=== PATIENT | male | born 1955 | race Caucasian/White ===

== ENCOUNTER → 2016-10-13 | Outpatient (CLI) | payer OTHER, MEDICARE ==
[~2016-10-13] VITALS: Ht 180.3 cm; Wt 123.8 kg
[~2016-10-13] MED LIST: BYSTOLIC10 MG PO; CO Q-10100 MG PO; COQ-10100 MG PO; COZAAR 50 MG TA50 MG PO; COZAAR100 MG PO; CRESTOR20 MG PO; ENDOCET 10-3251 EACH PO; ENDOCET 5-3251 EACH PO; EYE DROPS15 M1; FISH OIL 1,001000 MG PO; HYDROCHLOROTHIA50 MG PO; NAPROSYN500 MG PO; NEURONTIN 300300 M1 PO; NUCYNTA ER100 MG PO; NUCYNTA100 MG PO; NUCYNTA50 MG PO; PERCOCET 10-321 EACH; PERCOCET 10-321 EACH PO; PERCOCET PO; TIZANIDINE HCL 22 M1 PO; TIZANIDINE HCL2 M1 PO; TRICOR; XALATAN2.5 ML OP; XALATAN2.5 ML OPHTHALMIC; ZANAFLEX2 M1 PO
--- NOTE | ~2016-10-13 | HPC ---
[facility] [place] [address] PAIN MANAGEMENT CONSULTATION Name: TY RAHMAN Room #: REG Denise Ordaz#: [id number] Admission: 10/13/16 Attend Phys: Josue Esqueda DO Discharge: Date of : 59 Report #: [id number] THIS REPORT FOR: //name// CC: Barry Esqueda HISTORY: The patient is a very pleasant 61-year-old gentleman, well known to pain clinic, being treated for chronic pain syndrome, status post both cervical and lumbar decompressive laminectomies. He had been stable on Nucynta 100 mg b.i.d. for quite some time, but this became onorously expensive. We rotated to Percocet 10/325 one tablet 2-3 times a day, limit 75 tablets for 30 days. Continued Naprosyn 5 mg b.i.d. Last visit, we did perform a cervical epidural injection, which has afforded some 60% to 70% overall relief of the cervical radicular component of pain. The patient notes that he takes his Percocet at 05:00 a.m. and by 02:00 p.m., he is having breakthrough pain, but he is loathe to take the second one while still at work as it does cause some sedation and has chronic pain that is a 5 on a 0-10 visual analog scale, primarily low back and cervical radicular, with the low back pain radiating into his legs. Pain is typically exacerbated with standing, walking or sitting. PHYSICAL EXAMINATION: GENERAL: Shows a 61-year-old gentleman, BMI is 38.1 kilograms per meter squared. VITAL SIGNS: Blood pressure shows modest hypertension, 153/87; pulse 94 and respirations 16. EXTREMITIES: Upper and lower extremity strength is examined, slightly decreased right triceps strength. Gait is tandem. NEUROLOGIC: Cervical range of motion is modestly limited. NEUROLOGIC: Cranial 2-12 are grossly intact. We reviewed the fact that opiate medications are being used to provide analgesia adequate to support activities of daily living, not attempting to achieve a specific pain score on the 0-10 Visual Analog Scale. The current opiate medications are providing sufficient analgesia to allow the patient to participate in activities of daily living. The patient is not exhibiting any aberrant behavior suggestive of drug diversion. The patient is not having any adverse reactions to medications. The patient is not suffering from daytime somnolence or mental acuity changes. The patient is managing opiate-induced constipation with appropriate zgqr-fhp-hpzigpp agents and dietary considerations. The patient was counseled on concern for caution with operating a motor vehicle while using opiate medications. A physical exam was performed and the patient's functional status was evaluated. All patients with back pain were advised against the bed rest greater than 4 days and were advised to return to normal activities. Pain score assessment was [address] [address] PAIN MANAGEMENT CONSULTATION Name: TY RAHMAN EDUARDO Room #: REG [facility] Sushma#: [id number] Admission: 10/13/16 Attend Phys: Josue Esqueda DO Discharge: Date of : 59 Report #: [id number] noted and the treatment plan was reviewed with the patient. All current medications, both prescribed and OTC were reviewed and reconciled on the electronic medical record. Tobacco screening was accomplished and smoking cessation was advised when indicated. BMI was noted and diet/exercise modification was recommended for all patients following outside normal parameters. I reviewed with the patient today their responsibilities to safeguard prescription medications, reviewed their responsibility to utilize medications only as prescribed by the physician. They are to seek and receive pain medications only from 1 physician group ( [facility]). They are to use 1 pharmacy and keep the clinic informed if they change pharmacies. Their responsibilities include making followup visits in a timely fashion and to avoid abrupt discontinuation of medication usage. Their responsibilities further include bringing their medications (bottles from the pharmacy with residual pills) to the visit for possible confirmation of pill counts and the patient understands it is their responsibility to submit to random drug screens to ensure both that the medications prescribed are present, and that no other controlled substances are present. All prescriptions provided today were generated electronically. ASSESSMENT: Symptomatic chronic pain syndrome; axial back pain, status post both cervical and lumbar decompressive laminectomies, requiring complex medication management. Last urine drug screen, 03/03/2016, positive for prescribed medications. RECOMMENDATIONS: After a long discussion with the patient today, we have elected to try rotating back to Nucynta 100 mg extended release b.i.d. He is now on Medicare and thinks he may have better insurance coverage. If, however, for some reason this medication remains incredibly expensive, I will be happy to leave a prescription for Percocet 10/325 one tablet 2-3 times a day, limit 75 tablets for 30 days to be exchanged for his 3 Nucynta ER 100 mg b.i.d. prescriptions. <ELECTRONICALLY SIGNED> By: Josue Esqueda DO 10/15/16 0932 1226 0022 Josue Esqueda DO /nt
[2016-10-13 10:01] VITALS: BP 153/87
== END | disposition home or self-care (01) ==
LOC: PAIN 07:24
DX: G89.4 Chronic pain syndrome (principal); M54.9 Dorsalgia, unspecified; F11.20 Opioid dependence, uncomplicated; Z98.890 Other specified postprocedural states

== ENCOUNTER → 2017-01-15 | Outpatient (CLI) | payer OTHER, MEDICARE ==
[~2017-01-15] VITALS: Ht 180.3 cm; Wt 122.9 kg
--- NOTE | ~2017-01-15 | HPC ---
[facility] [place] [address] PAIN MANAGEMENT CONSULTATION Name: TY RAHMAN Room #: REG [facility] Sushma#: [id number] Admission: 01/15/17 Attend Phys: Josue Esqueda DO Discharge: Date of : 59 Report #: [id number] THIS REPORT FOR: //name// CC: Barry Esqueda DATE OF SERVICE: 01/15/2017 The patient is a 62-year-old gentleman typically treated for symptomatic cervical radiculopathy, chronic pain syndrome requiring complex medication management, status post cervical and lumbar decompressive laminectomies. The patient was last seen in the pain clinic 10/13/2016, continuing on baseline medication. Prior urine drug screen 03/03/2016 was positive for prescribed medications. Returns to pain clinic today noting that while medications are generally providing sufficient analgesia to participate in activities of daily living, rates his pain at 4-5 on a 0-10 visual analog scale. Primary pain is typically low back, bilateral thighs and neck. He is having some increasing pain at the base of his surgical scar in the cervical spine. scar tissue here may be some tenderness in the splenius capitis and trapezius muscles, although no discrete trigger points are noted. Cervical range of motion is modestly limited. Upper extremity strength remains preserved. We reviewed the fact that opiate medications are being used to provide analgesia adequate to support activities of daily living, not attempting to achieve a specific pain score on the 0-10 Visual Analog Scale. The current opiate medications are providing sufficient analgesia to allow the patient to participate in activities of daily living. The patient is not exhibiting any aberrant behavior suggestive of drug diversion. The patient is not having any adverse reactions to medications. The patient is not suffering from daytime somnolence or mental acuity changes. The patient is managing opiate-induced constipation with appropriate jvqz-ovr-yadqggc agents and dietary considerations. The patient was counseled on concern for caution with operating a motor vehicle while using opiate medications. A physical exam was performed and the patient's functional status was evaluated. All patients with back pain were advised against the bed rest greater than 4 days and were advised to return to normal activities. Pain score assessment was noted and the treatment plan was reviewed with the patient. All current medications, both prescribed and OTC were reviewed and reconciled on the electronic medical record. Tobacco screening was accomplished and smoking cessation was advised when indicated. BMI was noted and diet/exercise modification was recommended for all patients following outside normal parameters. I reviewed with the patient today their responsibilities to [address] [address] PAIN MANAGEMENT CONSULTATION Name: TY RAHMAN Room #: [facility] [id number] Admission: 01/15/17 Attend Phys: Josue Esqueda DO Discharge: Date of : 59 Report #: [id number] prescription medications, reviewed their responsibility to utilize medications only as prescribed by the physician. They are to seek and receive pain medications only from 1 physician group ([facility]). They are to use 1 pharmacy and keep the clinic informed if they change pharmacies. Their responsibilities include making followup visits in a timely fashion and to avoid abrupt discontinuation of medication usage. Their responsibilities further include bringing their medications (bottles from the pharmacy with residual pills) to the visit for possible confirmation of pill counts and the patient understands it is their responsibility to submit to random drug screens to ensure both that the medications prescribed are present, and that no other controlled substances are present. All prescriptions provided today were generated electronically. PHYSICAL EXAMINATION: Unchanged, 62-year-old gentleman, BMI is 37.8 kilograms per meter squared. Blood pressure is modestly elevated at 153/89, pulse 79, respirations are 14. Former smoker. Gait is tandem. Lower extremity strength is preserved. Again, tenderness in the left splenius capitis and trapezius. ASSESSMENT: 1. Symptomatic lumbar radiculopathy status post decompressive laminectomy. 2. Symptomatic cervical radiculopathy, status post cervical decompressive laminectomy. 3. Axial back pain. 4. High risk complex medication management. RECOMMENDATIONS: Continue baseline medications unchanged, Percocet 10/325 one tablet 2-3 times a day, limits 75 tablets for 30 days. I have taken the liberty of writing for 3 months of current medication. Follow up at that time, earlier if needed. By: 1600 [id number] Josue Esqueda DO /nt
[2017-01-15 08:27] VITALS: BP 153/89
== END | disposition home or self-care (01) ==
LOC: PAIN 07:42
DX: M54.12 Radiculopathy, cervical region (principal); M54.16 Radiculopathy, lumbar region; G89.4 Chronic pain syndrome; Z98.890 Other specified postprocedural states; Z68.37 Body mass index [BMI] 37.0-37.9, adult; Z87.891 Personal history of nicotine dependence

== ENCOUNTER → 2017-09-03 | Outpatient (CLI) | payer OTHER, MEDICARE ==
[~2017-09-03] VITALS: Ht 180.3 cm; Wt 124.6 kg
--- NOTE | ~2017-09-03 | HPC ---
[facility] [place] [address] PAIN MANAGEMENT CONSULTATION Name: TY RAHMAN Room #: REG [facility] Sushma#: [id number] Admission: 09/03/17 Attend Phys: Josue Esqueda DO Discharge: Date of : 59 Report #: [id number] THIS REPORT FOR: //name// CC: Barry Esqueda DATE OF SERVICE: 09/03/2017 The patient is a very pleasant 62-year-old gentleman long known to pain clinic, typically treated for chronic pain syndrome, status post both cervical and lumbar decompressive laminectomies, requiring complex medication management. Last seen in pain clinic on 05/01/2017. Continued on Percocet 10/325 one tablet 2-3 times a day. Buccal swab at that time was positive for prescribed medications and no others. He returns to pain clinic today noting that medications generally provide sufficient analgesia to participate in activities of daily living. He notes that the injection at last visit had afforded good incremental relief of radicular pain component. He rates his pain as a 3 on VAS at present. He notes 80% relief following the injection for about 4 months. Pain is also beginning to recur slightly. He uses his Percocet 1-3 a day. He does note some increasing lethargy. He has followed up with Dr. Villalpando who ordered a serum testosterone test. This has been accomplished, but the results are not back yet. We reviewed the fact that opiate medications are being used to provide analgesia adequate to support activities of daily living, not attempting to achieve a specific pain score on the 0-10 Visual Analog Scale. The current opiate medications are providing sufficient analgesia to allow the patient to participate in activities of daily living. The patient is not exhibiting any aberrant behavior suggestive of drug diversion. The patient is not having any adverse reactions to medications. The patient is not suffering from daytime somnolence or mental acuity changes. The patient is managing opiate-induced constipation with appropriate mpzm-vtp-kqfsrpv agents and dietary considerations. The patient was counseled on concern for caution with operating a motor vehicle while using opiate medications. A physical exam was performed and the patient's functional status was evaluated. All patients with back pain were advised against the bed rest greater than 4 days and were advised to return to normal activities. Pain score assessment was noted and the treatment plan was reviewed with the patient. All current medications, both prescribed and OTC were reviewed and reconciled on the electronic medical record. Tobacco screening was accomplished and smoking cessation was advised when indicated. BMI was noted and diet/exercise modification was recommended for all patients following outside normal parameters. [address] [address] PAIN MANAGEMENT CONSULTATION Name: TY RAHMAN Room #: REG [facility]#: [id number] Admission: 09/03/17 Attend Phys: Josue Esqueda DO Discharge: Date of : 59 Report #: [id number] I reviewed with the patient today their responsibilities to safeguard prescription medications, reviewed their responsibility to utilize medications only as prescribed by the physician. They are to seek and receive pain medications only from 1 physician group ( [facility]). They are to use 1 pharmacy and keep the clinic informed if they change pharmacies. Their responsibilities include making followup visits in a timely fashion and to avoid abrupt discontinuation of medication usage. Their responsibilities further include bringing their medications (bottles from the pharmacy with residual pills) to the visit for possible confirmation of pill counts and the patient understands it is their responsibility to submit to random drug screens to ensure both that the medications prescribed are present, and that no other controlled substances are present. All prescriptions provided today were generated electronically. PHYSICAL EXAMINATION: Otherwise shows a pleasant 62-year-old gentleman, BMI is 38.3 kilograms per meter squared. Blood pressure is 148/90, pulse 88, respirations 20. Subjective pain score of 3 on a VAS. Rises from chair using armrest; modest antalgic gait, generally tandem. History of hypertension. Medication list was reconciled. We have reviewed his opiate consent to treat contract signed 03/03/2016. Functional assessment tool is 50/70. ASSESSMENT: 1. Symptomatic lumbar radiculopathy status post decompressive laminectomy. 2. Symptomatic cervical radiculopathy status post decompressive laminectomy. 3. Complex medication management. RECOMMENDATION: Renew Percocet 10/325 75 tablets for 30 days, I have taken the liberty of writing for 3 months of these medications. Follow up at that time, earlier if needed for consideration for repeat epidural injection under fluoroscopy for exacerbation of L4 radicular pain pattern. <ELECTRONICALLY SIGNED> By: Josue Esqueda DO 09/09/17 0744 1215 1418 Josue Esqueda DO /nt
[2017-09-03 11:03] VITALS: BP 148/90
== END ==
LOC: PAIN 05-22 07:15
DX: M54.16 Radiculopathy, lumbar region (principal); M96.1 Postlaminectomy syndrome, not elsewhere classified; M54.12 Radiculopathy, cervical region; Z79.899 Other long term (current) drug therapy

== ENCOUNTER → 2018-04-06 | Outpatient (CLI) | payer OTHER, MEDICARE ==
--- NOTE | ~2018-04-06 | SLE ---
[facility] [place] [address] POLYSOMNOGRAPHY STUDY Name: TY RAHMAN Room #: REG [facility]#: [id number] Admission: 04/06/18 Attend Phys: Smita Zuniga MD Discharge: Date of : 59 Report #: [id number] THIS REPORT FOR: //name// CC: Smita Rod DATE OF SERVICE: 04/06/2018 ATTENDING PHYSICIAN: Dr. Yvon Rod. The patient is 63 years old who weighs 280 pounds with a BMI of 39.0. The patient was found to have moderate SUSAN and was clinically symptomatic, as a result, he was referred back for CPAP titration study. During the night study, the patient spent 437 minutes in bed and slept for 378 minutes with a sleep efficiency of 86%. Sleep latency was 12.7 minutes with a REM latency of 67.7 minutes. Overall, sleep architecture showed normal stage 1 sleep, increased stage 2 sleep, absent slow wave and normal REM sleep. During the night of study, the patient's EKG monitoring revealed an average heart rate of 59 beats per minute with a maximum of 84 beats per minute. No sustained arrhythmias were observed. PLMS were seen at an index of 2.9 per hour and none caused EEG arousals. The patient was started on CPAP at a pressure of 5 cm of water and titrated up to 10 cm of water. At the final pressure, the patient slept for 224 minutes. The patient had 66 minutes of REM sleep. When the patient had REM period, supine sleep was seen as well. The patient's AHI was reduced to 0.5 per hour and oxygen saturation remained above 91%. The patient tolerated the CPAP well. IMPRESSION: 1. Moderate sleep apnea diagnosed by recent sleep study. 2. No clinically significant PLMS. RECOMMENDATIONS: 1. CPAP at 10 cm water completely eliminated the patient's sleep apnea and should be used on a nightly basis. 2. Follow up in 4-6 weeks to assess compliance with CPAP and to document clinical improvement. 3. Weight loss is strongly advised. 4. Avoid DEVELOPMENT MANAGER depressants. [facility] [address] [place] [address] POLYSOMNOGRAPHY STUDY Name: TY RAHMAN EDUARDO Room #: REG [facility]#: [id number] Admission: 04/06/18 Attend Phys: Smita Zuniga MD Discharge: Date of : 59 Report #: [id number] 5. Cautioned regarding driving until symptoms of sleep apnea resolve with the use of CPAP. <ELECTRONICALLY SIGNED> By: Bebeto Pelaez MD 04/08/18 1849 51 31 Bebeto Pelaez MD /nt
== END ==
LOC: SLEEPLAB 15:05
DX: G47.33 Obstructive sleep apnea (adult) (pediatric) (principal)

== ENCOUNTER → 2018-04-30 | Outpatient (CLI) | payer OTHER, MEDICARE ==
[~2018-04-30] VITALS: Ht 180.3 cm; Wt 121.4 kg
[2018-04-30 08:27] VITALS: BP 145/81
== END | disposition home or self-care (01) ==
LOC: PAIN 06:47
DX: M54.16 Radiculopathy, lumbar region (principal); G89.29 Other chronic pain; Z87.891 Personal history of nicotine dependence

== ENCOUNTER → 2018-06-11 | Outpatient (CLI) | payer OTHER, MEDICARE ==
[~2018-06-11] VITALS: Ht 180.3 cm; Wt 114.9 kg
--- NOTE | ~2018-06-11 | HPC ---
[facility] [address] [place] [address] PAIN MANAGEMENT CONSULTATION Name: JOSIAHTY EDUARDO [facility] #: [id number] Admission: 06/11/18 Attend Phys: Quintin Shane MD Discharge: Date of : 59 Report #: [id number] THIS REPORT FOR: //name// CC: Quintin Villalpando DATE OF SERVICE: 06/11/2018 CHIEF COMPLAINT: Here for another epidural injection. HISTORY: The patient is a 63-year-old gentleman who has been followed in the Pain Clinic. He has a history of back pain and problems. He has undergone epidural steroid injection in both cervical as well as lumbar area. He returns today with complaints of lumbar pain and discomfort. He has had lumbar laminectomy and disk surgery. Finds that the Percocet medications, continue to be helpful. Pain radiates down into both legs. Describes it as sharp, aching, numbness and tingling sensation. Standing, walking and activities of daily living worsen his pain. It particularly gets more problematic during the evening time. ALLERGIES: No known drug allergies. CURRENT MEDICATIONS: Percocet 10/325, Naprosyn 500 mg b.i.d., CoQ10 100 mg, Xalatan 0.005% ophthalmic drops, Crestor 20 mg, losartan 50 mg, fish oil 1000 mg, hydrochlorothiazide 50 mg. PAIN CLINIC ASSESSMENT/PQRS: 1. History of osteoarthritis. The patient has some arthritic changes involving his neck as well as laminectomies and low back area. 2. The patient is not being treated for rheumatoid arthritis. 3. Height 5 feet 11 inches, weight 253 pounds. 4. BMI is 35.4. 5. VITAL SIGNS: Blood pressure 154/87, pulse 57, respiratory rate 16, room air saturation is 99%. 6. Pain intensity 5-6/10. 7. Fall risk. The patient has not fallen in the last 3 months. 8. Blood thinner. The patient is not on a blood thinning medication. 9. History of hypertension. The patient is being treated for hypertension. 10. Opioids greater than 6 weeks. The patient receives medications from one source, the pain clinic. 11. Full assessment tool. 12. Recreational drug use. The patient denies use of recreational drugs. 13. Tobacco: The patient denies use of tobacco at this juncture. 14. Alcohol: The patient denies use of alcohol. PHYSICAL EXAMINATION: [facility] [address] [place] [address] PAIN MANAGEMENT CONSULTATION Name: JOSIAHTY Room #: REG [facility]#: [id number] Admission: 06/11/18 Attend Phys: Quintin Shane MD Discharge: Date of : 59 Report #: [id number] GENERAL: The patient is a well-developed, well-nourished white male. Appears his stated age. He is alert and oriented x3. Affect is appropriate. Speech is fluent. HEAD, EYES, EARS, NOSE, AND THROAT: Normocephalic, atraumatic. Extraocular eye muscles intact. Sclerae nonicteric. Mucous membranes are moist. NECK: Without adenopathy or JVD. Deep tendon reflexes trace. LUNGS: Clear to auscultation without rhonchi or rales. HEART: Regular rate. ABDOMEN: Nontender. Bowel sounds present. The patient without significant scoliosis, kyphosis, or lordosis. Well-healed scar in the low back area. EXTREMITIES: Upper extremity muscle strength is judged to be 5/5 for the major muscle groups. The patient has some pain and discomfort in the lower portion of his back with pain is radiating down the L4-L5 dermatomal distribution in the L5-S1 dermatomal distribution. IMPRESSION: 1. Lumbar radiculopathy, L5-S1 distribution today. 2. Glaucoma. PAST MEDICAL HISTORY: 1. Gastroesophageal reflux. 2. Gout. 3. Hernia history. 4. Renal stones. RECOMMENDATIONS: We discussed treatment options with the patient. We will proceed with an epidural steroid injection in the L5-S1 dermatomal distribution. Risks and benefits of the procedure were discussed. Possible complications which could include, but are not limited to infection, increased muscle soreness, headache, bleeding, worsening of pain, nerve damage and the patient elects to proceed. PROCEDURE NOTE: The patient was placed in the prone position. Fluoroscopy was used to identify the L5-S1 area on the right. A 0.25% bupivacaine was infiltrated. A 17-gauge Tuohy with loss of resistance technique was used to gain access. There was no CSF, heme or paresthesia. Along the right midline area and directed toward the right paramedian area, 0.25% bupivacaine was infiltrated. A 17-gauge Tuohy was used to locate the appropriate epidural space. Aspiration was negative. A total of 80 mg of Depo-Medrol, 40 mg of triamcinolone and 2 mL of 0.25% bupivacaine was injected. The patient tolerated the procedure well. There were no complications. The patient remained in the pain clinic for an appropriate amount of time. He will follow up as needed. [address] [address] PAIN MANAGEMENT CONSULTATION Name: TY RAHMAN EDUARDO Room #: REG [facility] [id number] Admission: 06/11/18 Attend Phys: Quintin Shane MD Discharge: Date of : 59 Report #: [id number] We would like to thank you for letting us to participate in his care. We hope he continues to improve. By: 0919 1410 Quintin Shane MD /ELIE
[2018-06-11 10:34] VITALS: BP 154/87
== END | disposition home or self-care (01) ==
LOC: PAIN
DX: M54.16 Radiculopathy, lumbar region (principal); G89.29 Other chronic pain; H40.9 Unspecified glaucoma; K21.9 Gastro-esophageal reflux disease without esophagitis; M10.9 Gout, unspecified; Z87.442 Personal history of urinary calculi; Z98.890 Other specified postprocedural states; Z79.899 Other long term (current) drug therapy; Z87.891 Personal history of nicotine dependence

== ENCOUNTER → 2018-07-14 | Outpatient (CLI) | payer OTHER, MEDICARE ==
[~2018-07-14] VITALS: Ht 180.3 cm; Wt 109.8 kg
[2018-07-14 08:03] VITALS: BP 147/84
--- NOTE | 2018-07-14 08:08 | NUR ---
Pain Clinic Assessment: 1. History of Osteoarthritis: Not Applicable History of Rheumatoid Arthritis: Not Applicable 2. Height: 5 ft. 11 in. 180.3 cm. Weight: 242.0 lb. oz. 109.771 kg. Patient's BMI: 33.8 3. Vital Signs: BP: 147/84 Pulse: 74 Resp: 15 Temp: 02 Sat: 98 ECG Mon: 4. Pain Intensity: 8 MAX 5. Fall Risk: Dizziness: N Needs help standing or walking: N Fallen in the last 3 months: N Fall risk comments: 6. Patient on Blood Thinner: None 7. History of Hypertension: Y 8. Opioid Therapy greater than 6 weeks: Y Opiate Contract Signed: 03/03/16 9. Risk Assessment Tool Provided: LOW RISK-3 10. Functional Assessment Tool: 50 11. Recreational Drug Use: Never Drug Type: Tobacco Use: Former Smoker Tobacco Type: Amount or Packs/day: How Many Years: Alcohol Use: Past use Frequency: Quant:
--- NOTE | 2018-07-16 08:38 | HPC ---
[facility] [address] [place] [address] PAIN MANAGEMENT CONSULTATION Name: TY RAHMAN Room #: REG [facility] Sushma#: [id number] Admission: 07/14/18 Attend Phys: Quintin Shane MD Discharge: Date of : 59 Report #: [id number] THIS REPORT FOR: //name// CC: Quintin Villalpando DATE OF SERVICE: 07/14/2018 CHIEF COMPLAINT: "I am still having some pain in my back and I think I may need surgery." FOLLOWUP HISTORY: The patient is a 63-year-old gentleman who has been followed in the pain clinic because of chronic pain. As you recall, he has undergone epidural steroid injections. He has had some problems with the cervical area as well as the lumbar area. After the cervical procedures, he is having less pain and discomfort in the upper extremity. Does still have some pain and discomfort in his neck with grating sounds when he moves his neck. States that it sometimes feels like he has got wind chimes up in his neck. His biggest concern is that which is involving his low back and down into his leg. States that he has been having pain and discomfort was on one side, but now he is beginning to feel it on both sides. He has been sleeping in a recliner. Notes that his pain is worse by afternoon. States that he has difficulty walking. He is having pain that radiates down into his legs and continues to feel of aching sensation in his low back. ALLERGIES: No known drug allergies. CURRENT MEDICATIONS: Percocet 10/325, Naprosyn 500 mg b.i.d., CoQ10 100 mg, Xalatan 0.00% ophthalmic drops, Crestor 20 mg, losartan 5 mg, fish oil 1000 mg, hydrochlorothiazide 50 mg. PAIN CLINIC ASSESSMENT AND PQRS: 1. History of osteoarthritis. The patient has some arthritic changes involving his neck as well as low back area, status post surgeries in both areas. 2. The patient is not being treated for rheumatoid arthritis. 3. Height 5 feet 11 inches, weight 242 pounds, BMI is 33.8. 4. Vital signs: Blood pressure 147/84, pulse 74, respiratory rate 15, room air saturation 98%. 5. Pain intensity 01/29. 6. Fall risk. The patient has not fallen in the last 3 months. 7. Blood thinner. The patient is not on a blood thinning medication. 8. Hypertension. The patient has been treated for hypertension. 9. Opioids greater than 6 weeks. The patient receives medication from one source, pain clinic. 10. Risk assessment tool, low for opioids 0. 11. Functional assessment tool 50/70. [place] [address] PAIN MANAGEMENT CONSULTATION Name: TY RAHMAN Room #: REG LG [facility]#: [id number] Admission: 07/14/18 Attend Phys: Quintin Shane MD Discharge: Date of : 59 Report #: [id number] 12. Recreational drug use. The patient denies use of recreational drugs. 13. Tobacco: He is a former smoker. 14. Alcohol: The patient denies use of alcoholic beverages. PHYSICAL EXAMINATION: GENERAL: The patient is a well-developed, well-nourished white male. Appears his stated age. He is alert and oriented x 3. Affect oriented x 3. His affect is appropriate. Speech is fluent. HEENT: Normocephalic, atraumatic. Extraocular eye muscles intact. Sclerae nonicteric. Mucous membranes are moist. NECK: Without adenopathy or JVD. The patient has reasonably good motion in his neck. Does not complain about significant pain radiating down to his arms. LUNGS: Clear to auscultation without rhonchi or rales. HEART: Regular rate. ABDOMEN: Nontender. Bowel sounds present. The patient without significant scoliosis, kyphosis or lordosis. MUSCULOSKELETAL: Has a well-healed scar in the lower portion of his back. Upper extremity muscle strength is judged to be 5-/5 for the major muscle groups in the upper extremity. Lower extremity, the patient has some pain in the L4-L5 dermatomal distribution with pain radiating down into his back in the L5 dermatomal distribution. IMPRESSION: 1. Lumbar radiculopathy, L5-S1 dermatomal distribution. 2. History of glaucoma. 3. Gout. 4. History of renal stones. 5. Gastroesophageal reflux. RECOMMENDATIONS: We discussed treatment options with the patient. At this juncture, he feels his pain continues to be problematic, feels like it is growing in nature. He feels that there has been a change in this pain conditions. Had a difficulty walking around in the afternoon because of the severity of pain. He has began to sleep in a recliner at home. He feels that there might be something change in his low back area. He would like to undergo an MRI to note the problems. If his pain is ____ amenable to surgery, he is open for that at this juncture because of the severity of his pain and discomfort. The patient will undergo an MRI of his low back area. We will have him return in the near future. Possibility of another epidural steroid injection still remains. [address] [address] PAIN MANAGEMENT CONSULTATION Name: TY RAHMAN EDUARDO [id number] Admission: 07/14/18 Attend Phys: Quintin Shane MD Discharge: Date of : 59 Report #: [id number] We would like to thank you for letting us participate in his care. We hope he continues to improve. <ELECTRONICALLY SIGNED> By: Quintin Shane MD 07/16/18 0838 [id number] Quintin Shane MD /PMT
== END ==
LOC: PAIN 06:50
DX: M54.16 Radiculopathy, lumbar region (principal); M10.9 Gout, unspecified; K21.9 Gastro-esophageal reflux disease without esophagitis; Z87.442 Personal history of urinary calculi; Z86.69 Personal history of other diseases of the nervous system and sense organs; Z79.899 Other long term (current) drug therapy

== ENCOUNTER → 2018-07-16 | Outpatient (CLI) | payer OTHER, MEDICARE | LOC: MRI 09:16 | DX: M51.16 Intervertebral disc disorders with radiculopathy, lumbar region (principal); M51.27 Other intervertebral disc displacement, lumbosacral region; M51.37 Other intervertebral disc degeneration, lumbosacral region; M48.07 Spinal stenosis, lumbosacral region; N28.1 Cyst of kidney, acquired; M96.1 Postlaminectomy syndrome, not elsewhere classified; M12.88 Other specific arthropathies, not elsewhere classified, other specified site ==

== ENCOUNTER → 2018-12-13 | Outpatient (CLI) | payer OTHER, MEDICARE ==
[~2018-12-13] VITALS: Ht 180.3 cm; Wt 107.0 kg
[2018-12-13 13:23] VITALS: BP 162/80
--- NOTE | 2018-12-13 13:34 | NUR ---
Pain Clinic Assessment: 1. History of Osteoarthritis: Not Applicable History of Rheumatoid Arthritis: Not Applicable 2. Height: 5 ft. 11 in. 180.3 cm. Weight: 236.0 lb. oz. 107.049 kg. Patient's BMI: 32.9 3. Vital Signs: BP: 162/80 Pulse: 72 Resp: 14 Temp: 02 Sat: 98 ECG Mon: 4. Pain Intensity: 5-8 MAX 5. Fall Risk: Dizziness: N Needs help standing or walking: N Fallen in the last 3 months: N Fall risk comments: 6. Patient on Blood Thinner: None 7. History of Hypertension: Y 8. Opioid Therapy greater than 6 weeks: Y Opiate Contract Signed: 03/03/16 9. Risk Assessment Tool Provided: LOW RISK-3 10. Functional Assessment Tool: 50 11. Recreational Drug Use: Never Drug Type: Tobacco Use: Former Smoker Tobacco Type: Amount or Packs/day: How Many Years: Alcohol Use: Past use Frequency: Quant:
--- NOTE | 2018-12-21 17:25 | HPC ---
[facility] [place] [address] PAIN MANAGEMENT CONSULTATION Name: TY RAHMAN Room #: REG LG Ordaz#: [id number] Admission: 12/13/18 ������������������ Attend Phys: Abilio Soriano MD Discharge: ������������������ Date of : 59 Report #: [id number] THIS REPORT FOR: //name// CC: Abilio Villalpando MD DATE OF SERVICE: 12/13/2018 Followup visit for chronic low back pain with radiculopathy. The patient returns to pain clinic today with lumbar radiculopathy. He complains of pain in his low back that radiates down into his buttocks bilaterally. Pain is much worse today on the right than the left. He has had previous injections with good response. He has had a laminectomy at L4 and at L3. Epidural injection cannot really be performed at that level due to scar tissue formation. His most recent surgery was in August. He has had some previous epidural injections recently with Dr. Shane that have not been helpful. The last injection was at L5-S1. PHYSICAL EXAMINATION: He is a pleasant gentleman. Blood pressure is 135/88, heart rate is 80. Moves easily from a sitting to standing position, ambulates with mild antalgic features. He has positive straight leg raising discomfort on the right. It radiates down the L4 distribution all the way into the top of the foot and great toe. Sensation is slightly diminished. Straight leg raising is positive on the right consistent with radiculopathy. IMPRESSION: Low back pain with radiculopathy. RECOMMENDATIONS: Right L4-L5 transforaminal epidural injection under fluoroscopic guidance. PROCEDURE: He was taken to the fluoroscopic suite, placed prone. Skin prepped with ChloraPrep. Skin anesthetized over the right L4-L5 neural foramen. Using triplanar fluoroscopic views, I advanced the needle into the neural foramen and after negative aspiration, I injected 1 mL of Omnipaque demonstrating an excellent epidurogram and dye spreading along the L4 nerve root. This was then followed by 3 mL of 0.5% lidocaine mixed with 80 mg of triamcinolone. He tolerated the procedure well and was observed for 45 minutes and discharged to the recovery room before discharge. [address] [address] PAIN MANAGEMENT CONSULTATION Name: JOSIAHTYBRANDON CLARK Room #: REG [facility].#: [id number] Admission: 12/13/18 ������������������ Attend Phys: Abilio Soriano MD Discharge: ������������������ Date of : 59 Report #: [id number] Followup visit planned as needed. ��������������������������������������������� <ELECTRONICALLY SIGNED> ���������������������������������������� By: Abilio Soriano MD ��������������������������������������������� 12/21/18 1725 1605 [id number] Abilio Soriano MD /nt
== END | disposition home or self-care (01) ==
LOC: PAIN 11-25 06:51
DX: M54.16 Radiculopathy, lumbar region (principal); G89.29 Other chronic pain; Z98.890 Other specified postprocedural states; Z87.891 Personal history of nicotine dependence; Z79.899 Other long term (current) drug therapy

== ENCOUNTER → 2019-11-02 | Outpatient (CLI) | payer OTHER, MEDICARE | LOC: ULTRA 15:42 | DX: M79.662 Pain in left lower leg (principal); R60.0 Localized edema ==

== ENCOUNTER → 2019-11-25 | Outpatient (CLI) | payer OTHER, MEDICARE | LOC: SJCVCIMAG 08:43 | DX: I70.201 Unspecified atherosclerosis of native arteries of extremities, right leg (principal); M71.22 Synovial cyst of popliteal space [Baker], left knee ==

== ENCOUNTER → 2020-01-16 | Outpatient (CLI) | payer OTHER, MEDICARE ==
[~2020-01-16] VITALS: Ht 177.8 cm; Wt 116.1 kg
[~2020-01-16] MED LIST changes: +FISH OIL 1,2001 EAC4 PO; +ISO D3 2,000 U1 EACH PO; +ROSUVASTATIN CA10 MG PO; +TRIBENZOR 40-11 EAC1 PO; +TURMERIC 500 M1 EACH PO; +TYLENOL ARTHRI650 MG PO
[2020-01-16 15:04] VITALS: BP 165/86
--- NOTE | 2020-01-16 15:07 | NUR ---
Pain Clinic Assessment: 1. History of Osteoarthritis: SPINE History of Rheumatoid Arthritis: Not Applicable 2. Height: 5 ft. 10 in. 177.8 cm. Weight: 256.0 lb. oz. 116.121 kg. Patient's BMI: 36.7 3. Vital Signs: BP: 165/86 Pulse: 75 Resp: 16 Temp: 02 Sat: 96 ECG Mon: 4. Pain Intensity: 7 5. Fall Risk: Dizziness: N Needs help standing or walking: N Fallen in the last 3 months: N Fall risk comments: 6. Patient on Blood Thinner: None 7. History of Hypertension: Y 8. Opioid Therapy greater than 6 weeks: Y Opiate Contract Signed: 03/03/16 9. Risk Assessment Tool Provided: LOW RISK-0 10. Functional Assessment Tool: 58/70 11. Recreational Drug Use: Never Drug Type: Tobacco Use: Former Smoker Tobacco Type: Amount or Packs/day: How Many Years: Alcohol Use: Past use Frequency: Quant:
--- NOTE | 2020-01-19 09:57 | HPC ---
[facility] [place] [address] PAIN MANAGEMENT CONSULTATION Name: TY RAHMAN [facility] #[facility] [id number] Admission: 01/16/20 Attend Phys: Abilio Soriano MD Discharge: Date of : 59 Report #: [id number] THIS REPORT FOR: cc: Barry Villalpando,Abilio Webber MD ~ CC: Abilio Esqueda DATE OF SERVICE: 01/16/2020 Followup visit for low back pain with radiculopathy. The patient is a pleasant 65-year-old who is here today with radiculopathy. Pain radiates in an L4 distribution down his leg. He has had a nice response to transforaminal epidural injection last performed a year ago. Pain has been worsening in intensity over the course of the last several weeks and he is here today hoping for some relief. He was originally seen by Dr. Josue Esqueda years ago and was at one point on opioids. We got him off of opioids completely and I would like to see if we can keep it that way. Given his ability to manage without opioids with an intermittent epidural injection, I think this is a great place to start. Today, he reports his pain at the time of injection as a 7. Pain is worse with standing or walking. PHYSICAL EXAMINATION: He is 5 feet 10 inches, and BMI is 36.7. Blood pressure 165/86, heart rate 75, respirations 16, pain intensity 7/10. He is on no blood thinners, has a history of hypertension. He moves independently from sitting to standing position, ambulates with mild antalgic features. Positive straight leg raising, follows all the way down to the top of the lower leg in the L4 distribution radiating into the great toe. IMPRESSION: Lumbar radiculopathy, post-laminectomy syndrome. Although his MRI shows that he has quite severe spinal stenosis at L2-L3, I believe his pain may be more related to scar tissue at that area of his previous laminectomy. We will continue with injections using a transforaminal approach at L4-L5 given his good response. PROCEDURE: After informed consent, he was taken to the fluoroscopic suite, placed prone, skin prepped with ChloraPrep. Skin anesthetized over the L4-L5 interspace in neural foramen. Using triplanar fluoroscopic views, I advanced needle into the neural foramen. A 0.25 mL of Omnipaque was injected to [address] [address] PAIN MANAGEMENT CONSULTATION Name: TY RAHMAN Room #: [facility]#: [id number] Admission: 01/16/20 Attend Phys: Abilio Soriano MD Discharge: Date of : 59 Report #: [id number] demonstrate an excellent epidurogram. This was then followed by 3 mL of 0.5% lidocaine mixed with 40 mg of triamcinolone. He tolerated the procedure well. There were no complications. He was taken to recovery room for short observation and discharged with a reduction of pain from 7-2. Follow up as needed. <ELECTRONICALLY SIGNED> By: Abilio Soriano MD 01/19/20 0957 [id number] Abilio Soriano MD /nt
== END | disposition home or self-care (01) ==
LOC: PAIN 06:56
PROVIDERS: ATTEND Anesthesiology Pain Medicine
DX: M54.16 Radiculopathy, lumbar region (principal); G89.29 Other chronic pain; M96.1 Postlaminectomy syndrome, not elsewhere classified; Z98.890 Other specified postprocedural states; Z79.899 Other long term (current) drug therapy

== ENCOUNTER → 2020-08-16 | Outpatient (CLI) | payer OTHER | LOC: CAT 09:51 | PROVIDERS: ATTEND Neuromusculoskeletal Medicine & OMM | DX: Z13.6 Encounter for screening for cardiovascular disorders (principal); I25.10 Atherosclerotic heart disease of native coronary artery without angina pectoris; E78.00 Pure hypercholesterolemia, unspecified ==

== ENCOUNTER → 2020-11-05 | Outpatient (CLI) | payer OTHER, MEDICARE ==
[~2020-11-05] VITALS: Ht 180.3 cm; Wt 116.8 kg
[~2020-11-05] MED LIST changes: +ASA81BEC PO
[2020-11-05 14:28] VITALS: BP 158/94
[2020-11-05 14:30] VITALS: BP 158/94
--- NOTE | 2020-11-05 14:47 | NUR ---
Pain Clinic Assessment: 1. History of Osteoarthritis: SPINE History of Rheumatoid Arthritis: Not Applicable 2. Height: 5 ft. 11 in. 180.3 cm. Weight: 257.4 lb. oz. 116.756 kg. Patient's BMI: 35.9 3. Vital Signs: BP: 158/94 Pulse: 78 Resp: 16 Temp: 02 Sat: 100 ECG Mon: 4. Pain Intensity: 7-8 5. Fall Risk: Dizziness: N Needs help standing or walking: N Fallen in the last 3 months: N Fall risk comments: 6. Patient on Blood Thinner: None 7. History of Hypertension: Y 8. Opioid Therapy greater than 6 weeks: Y Opiate Contract Signed: 03/03/16 9. Risk Assessment Tool Provided: LOW RISK-0 10. Functional Assessment Tool: 58/70 11. Recreational Drug Use: Never Drug Type: Tobacco Use: Former Smoker Tobacco Type: Amount or Packs/day: How Many Years: Alcohol Use: Past use Frequency: Quant:
== END | disposition home or self-care (01) ==
LOC: PAIN 08:26
PROVIDERS: ATTEND Anesthesiology Pain Medicine
DX: M54.16 Radiculopathy, lumbar region (principal); G89.29 Other chronic pain; M96.1 Postlaminectomy syndrome, not elsewhere classified; I10 Essential (primary) hypertension; Z98.890 Other specified postprocedural states; Z79.899 Other long term (current) drug therapy; Z87.891 Personal history of nicotine dependence